=== PATIENT | male | born 1960 | race Caucasian/White ===

== ENCOUNTER 2020-09-27 03:25 | Inpatient (IN) | payer BC ==
[~2020-09-27] VITALS: Ht 190.5 cm; Wt 181.6 kg
--- NOTE | 2020-09-27 03:34 | PHYS DOC ---
Past History Past Medical History: Arthritis, Diabetes, High Cholesterol, Hypertension Past Medical History Sleep Apnea- on CPAP, venous stasis, Morbid obesity Past Surgical History Varicose venous treatment Smoking: Non-smoker General Adult HPI: HPI: ".. I woke up with really bad reflux ... about 1230.. I took some anti acids..and went back to bed.. but about 230... I woke up in a soaking sweat.,., and this bad chest pain.. it has never really gone away...."".. It feels like someone is giving me a really hard bear hug..." Patient is a 60 year old male who presents with above hx and complaints of chest pain. Chest pain is central and radiated to mid back between his shoulders. Pain does not seem to have a pleuritic component. Nothing seems to relieve the pain. This is not his typical reflux pain. Patient does have a history of elevated glucose, hypertension, and morbid obesity. Patient does have chronic leg swelling however this is improved with laser surgery of his varicose veins. Patient also on reports that his venous stasis has improved significantly since his treatment of his varicose veins. Patient denies any travel. Patient denies any significant ill contacts. No history of prior cardiac events. Patient normally follows [facility] for maintenance health care and his hypertensive meds. Patient does not smoke or use drugs. Review of Systems: Review of Systems: Constitutional: Denies fever or chills Eyes: Denies change in visual acuity HENT: Denies nasal congestion or sore throat Respiratory: Denies cough or shortness of breath Cardiovascular: Complains of central chest pain, history of chronic edema GI: Denies abdominal pain, nausea, vomiting, bloody stools or diarrhea : Denies dysuria Musculoskeletal: Denies back pain or joint pain Integument: Denies rash Neurologic: Denies headache, focal weakness or sensory changes Endocrine: Denies polyuria or polydipsia Lymphatic: Denies swollen glands Psychiatric: Denies depression or anxiety Family History: Family History: Father of GA at age 46, Hx Heart transplant, Mother DM, HTN , Pacer- alive , Brother /Sister 's HTN and DM Current Medications: Current Meds: See nursing for home meds Allergies: Allergies: NKIDA Physical Exam: PE: Constitutional: in acute distress, non-toxic appearance. [] HENT: Normocephalic, atraumatic, bilateral external ears normal, oropharynx moist, no oral exudates, nose normal. [] Eyes: PERRLA, EOMI, conjunctiva normal, no discharge. [] Neck: Normal range of motion, no tenderness, supple, no stridor. More than 17 circumference. Cardiovascular: Irregular heart rate regular rhythm, no murmur. ( Monitor shows a sinus rhythm with frequent PVCs) Lungs & Thorax: Bilateral breath sounds equal at apex with basilar crackles bilaterally on auscultation [] Abdomen: Bowel sounds normal, soft, no tenderness, no masses, no pulsatile masses. Morbidly obese Skin: Warm, mildly diaphoretic, no erythema, no rash. Venous stasis changes Back: No tenderness, no CVA tenderness. [] Extremities: No tenderness, no cyanosis, no clubbing, ROM intact, bilateral leg edema. [] No cording appreciated, Neurologic: Alert and oriented X 3, normal motor function, normal sensory function, no focal deficits noted. [] Psychologic: Affect anxious, judgement normal, mood normal. [] EKG: EKG: My interpretation EKG shows a sinus rhythm at 82 bpm. There is left axis changes. There is fascicular block. Contour abnormality suggestive of a strain pattern. Does have a PVCs. No findings of acute STEMI with contralateral changes. [] Radiology/Procedures: Radiology/Procedures: My interpretation of chest x-ray shows cardiomegaly. Some basilar atelectasis. No findings of acute consolidation. [] Heart Score: HEART Score for Chest Pain: HEART Score for Chest Pain Response (Comments) Value History Moderately Suspicious 1 ECG Nonspecific Repolarizatio 1 Age >45 - < 65 1 Risk Factors 1 or 2 Risk Factors 1 Troponin < Normal Limit 0 Total 4 Risk Factors: Risk Factors: DM, Current or recent (<one month) smoker, HTN, HLP, family history of CAD, obesity. Risk Scores: Score 0 - 3: 2.5% MACE over next 6 weeks - Discharge Home Score 4 - 6: 20.3% MACE over next 6 weeks - Admit for Clinical Observation Score 7 - 10: 72.7% MACE over next 6 weeks - Early Invasive Strategies Course & Med Decision Making: Course & Med Decision Making Pertinent Labs and Imaging studies reviewed. (See chart for details) Discussed presentation, testing and treatment plan with . Admit with cardiology consult. Plan if no beds, transfer to [facility]. Advised can not admit to [facility], no staff . 0500 Impression: 1. Chest pain 2. Hypertension 3. Diabetes glucose 178 4.. Sleep apnea-on BiPAP/CPAP 5. Morbid obesity [] Dragon Disclaimer: Dragon Disclaimer: This electronic medical record was generated, in whole or in part, using a voice recognition dictation system. Departure Departure: Referrals: AILYN CANNON (PCP) Luis Disclaimer This chart was dictated in whole or in part using Voice Recognition software in a busy, high-work load, and often noisy Emergency Department environment. It may contain unintended and wholly unrecognized errors or omissions. Dragon Disclaimer This chart was dictated in whole or in part using Voice Recognition software in a busy, high-work load, and often noisy Emergency Department environment. It may contain unintended and wholly unrecognized errors or omissions. Dragon Disclaimer This chart was dictated in whole or in part using Voice Recognition software in a busy, high-work load, and often noisy Emergency Department environment. It may contain unintended and wholly unrecognized errors or omissions. SUPRIYA BOURGEOIS MD Sep 27, 2020 03:34
--- NOTE | 2020-09-27 03:46 | EKG ---
[facility] ED [facility] [address] [place] [id number] Test Date: 2020-09-27 Test Time: 03:35:28 Pat Name: COLLIN BAUTISTA Department: Room: Gender: M [employer] Instructor: DARRYL : 1960 Requested By: SUPRIYA BOURGEOIS Order Number: [id number] Reading MD: Measurements Intervals [place] Rate: 82 P: 48 IL: 200 QRS: -39 QRSD: 90 T: 28 QT: 366 QTc: 431 Interpretive Statements SINUS RHYTHM ABNORMAL LEFT AXIS DEVIATION LEFT ANTERIOR FASCICULAR BLOCK QRS(T) CONTOUR ABNORMALITY CONSIDER ANTEROSEPTAL MYOCARDIAL DAMAGE ABNORMAL ECG RI6.02 No previous ECG available for comparison
[2020-09-27 03:50] LABS: BASO # 0.2 x10^3/uL (0.0-0.2); BASO % 3 % (0-3); EOS # 0.3 x10^3/uL (0.0-0.7); EOS % 4 % (0-3); HEMATOCRIT 48.2 % (39.0-53.0); HEMOGLOBIN 16.1 g/dL (13.0-17.5); LYMPH # 1.9 x10^3/uL (1.0-4.8); LYMPH % 23 % (24-48); MEAN CORPUSCULAR HEMOGLOBIN 28 pg (25-35); MEAN CORPUSCULAR HGB CONC 33 g/dL (31-37); MEAN CORPUSCULAR VOLUME 84 fL (79-100); MONO # 0.8 x10^3/uL (0.0-1.1); MONO % 10 % (0-9); NEUT # 4.9 x10^3uL (1.8-7.7); NEUT % 60 % (31-73); PLATELET COUNT 239 x10^3/uL (140-400); RED BLOOD COUNT 5.71 x10^6/uL (4.30-5.70); RED CELL DISTRIBUTION WIDTH 15.6 % (11.5-14.5); WHITE BLOOD COUNT 8.2 x10^3/uL (4.0-11.0)
[2020-09-27] MEDS ORDERED: IV RINGERS SOLUTION,LACTATED 1,000 ML IV SCH (04:00)
[2020-09-27] MEDS ORDERED: ASPIRIN CHEWABLE 81 MG TABLET. PO ONE (04:00)
--- NOTE | 2020-09-27 04:04 | RAD ---
INDICATION: Reason: Chest pain / Spl. Instructions: / History: COMPARISON: None. FINDINGS: Single view of chest obtained. No definite focal airspace consolidation. Cardiac silhouette is prominent in size. IMPRESSION: * No focal airspace consolidation or edema. Electronically signed by: Celso Lo MD (09/27/2020 4:01 AM) [id number]
[2020-09-27 04:09] LABS: CALCIUM 9.3 mg/dL (8.5-10.1); CREATININE 1.2 mg/dL (0.7-1.3); GFR 61.8
[2020-09-27 04:14] LABS: ALBUMIN 3.5 g/dL (3.4-5.0); DIRECT BILIRUBIN 0.1 mg/dL (0.0-0.2); MAGNESIUM 1.8 mg/dL (1.8-2.4); TOTAL BILIRUBIN 0.2 mg/dL (0.2-1.0); TOTAL PROTEIN 7.7 g/dL (6.4-8.2)
[2020-09-27] MEDS ORDERED: NITROGLYCERIN OINT 1 GM PACKET. TP ONE (04:15)
[2020-09-27] MEDS ORDERED: ENOXAPARIN ** NOTE DOSE ** SYRINGE SQ ONE (04:15)
[2020-09-27] MEDS ORDERED: MORPHINE SULFATE 2 MG/ML DISP.SYRIN. IVP PRN (04:30)
[2020-09-27] MEDS ORDERED: ONDANSETRON PF 4 MG/2 ML VIAL. IVP PRN (04:30)
[2020-09-27] MEDS ORDERED: ACETAMINOPHEN 325 MG TABLET PO PRN (04:30)
[2020-09-27] MEDS ORDERED: ANTI-COAG MONITOR BY PHARMACY. MC PRN (04:45)
[2020-09-27 06:06] VITALS: BP 156/78
[2020-09-27 06:09] LABS: BARBITURATES NEG (NEG); BENZODIAZEPINES NEG (NEG); CANNABINOIDS NEG (NEG); COCAINE NEG (NEG); METHADONE NEG (NEG); OPIATES NEG (NEG); PHENCYCLIDINE NEG (NEG)
[2020-09-27 06:13] LABS: AMPHETAMINE/METHAMPHETAMINE NEG (NEG)
[2020-09-27 06:18] LABS: BILIRUBIN,URINE NEG (NEG); CLARITY,URINE CLEAR; COLOR,URINE YELLOW; GLUCOSE,URINE NEG (NEG)
[2020-09-27 06:19] LABS: BACTERIA,URINE 0 /HPF (0-FEW); HYALINE CASTS, URINE OCC /HPF; NITRITE,URINE NEG (NEG); RBC,URINE OCC /HPF (0-2); SQUAMOUS EPITHELIAL CELL,UR FEW /LPF; UROBILINOGEN,URINE 0.2 mg/dL (0.2 mg/dL); WBC,URINE OCC /HPF (0-4)
--- NOTE | 2020-09-27 06:40 | NUR ---
The patient, COLLIN BAUTISTA, 60 y/o, M admitted by GISELA OSMAN MD, was given written information regarding hospital policies, unit procedures and contact persons. Valuables were checked and vital signs noted. PT awoke with chest pain at 0200 with radiation to LT arm and shoulder. PT presented to ER with continued chest pain. PT admitted with elevated troponin. At time of admission, PT is pain free. Reviewed with PT his PMH, PSH, SH, FH and medications.
--- NOTE | 2020-09-27 07:34 | NUR ---
lab called for elevated troponin 1.007. Dr. Roger is on the floor and has been notified.
[2020-09-27] MEDS ORDERED: ASPIRIN CHEWABLE 81 MG TABLET. PO SCH (08:00)
--- NOTE | 2020-09-27 08:32 | PDOC2 ---
CARDIAC CONSULT DATE OF CONSULT DOS: DATE: 09/27/20 TIME: 08:30 REASON FOR CONSULT Reason for Consult Chest pain REFERRING PHYSICIAN Referring Physician Dr. Lyons SOURCE Source: Chart review, Patient HPI History of Present Illness This is a 60 yo male who presented secondary to chest pain. Patient reports he woke up about midnight with acid reflux type pain in his central chest. Took tums and went back to bed. Woke back up about 2:00am with pressure and tightness around his chest. Sunset light someone was squeezing his chest. Pain radiated to his upper back and down his left arm. Was diaphoretic and nauseated. No dizziness or shortness of breath. Used heating pain, which did not improve his pain. Decided to come to the ED for further evaluation and treatment. Initial trop 0.055. Repeat at 1.0. EKG without significant acute changes. Pain resolved with nitro and ASA in ED and has not returned. PAST MEDICAL HISTORY Cardiovascular: HTN, hyperipidemia Endocrine: Diabetes PAST SURGICAL HISTORY Past Surgical History: Tonsillectomy, Other (vasectomy ) FAMILY HISTORY Family History: Coronary Artery Disease, Heart Disease, Hypertension SOCIAL HISTORY Smoke: No ALCOHOL: none Drugs: None Lives: Alone CURRENT MEDICATIONS Current Medications Current Medications Aspirin (Aspirin Chewable) 324 mg 1X ONCE PO ; Start 09/27/20 at 04:00; Stop 09/27/20 at 04:01; Status DC Lactated Ringer's 1,000 ml @ 100 mls/hr Q10H IV Last administered on 09/27/20at 04:12; Start 09/27/20 at 04:00; Stop 09/27/20 at 13:59 Enoxaparin Sodium (Lovenox 100mg Syringe) 180 mg 1X ONCE SQ Last administered on 09/27/20at 04:10; Start 09/27/20 at 04:15; Stop 09/27/20 at 04:16; Status DC Nitroglycerin (Nitro-Bid Oint) 1 inch 1X ONCE TP Last administered on 09/27/20at 04:11; Start 09/27/20 at 04:15; Stop 09/27/20 at 04:16; Status DC Ondansetron HCl (Zofran) 4 mg PRN Q4HRS PRN IVP NAUSEA/VOMITING; Start 09/27/20 at 04:30; Stop 09/28/20 at 04:29 Morphine Sulfate (Morphine 2mg Syringe) 2 mg PRN Q4HRS PRN IVP PAIN; Start 09/27/20 at 04:30; Stop 09/28/20 at 04:29 Acetaminophen (Tylenol) 650 mg PRN Q4HRS PRN PO FEVER > 100.3'F; Start 09/27/20 at 04:30; Stop 09/28/20 at 04:29 Aspirin (Aspirin Chewable) 81 mg DAILYWBKFT PO Last administered on 09/27/20at 07:44; Start 09/27/20 at 08:00 Enoxaparin Sodium (Lovenox 100mg Syringe) 180 mg Q12HR SQ ; Start 09/27/20 at 21:00 Famotidine (Pepcid) 20 mg BID PO ; Start 09/27/20 at 09:00 Info (Anti-Coagulation Monitoring By Pharmacy) 1 each PRN DAILY PRN MC SEE COMMENTS; Start 09/27/20 at 04:45 ALLERGIES Allergies: Coded Allergies: No Known Drug Allergies (Unverified , 09/27/20) ROS Review of Systems 14 point ROS conducted with pertinent positives noted above in hPI PHYSICAL EXAM General: Alert, Oriented X3, Cooperative, No acute distress HEENT: Atraumatic, Mucous membr. moist/pink Lungs: Clear to auscultation Heart: Regular rate, No murmurs Abdomen: Soft, No tenderness, Other (obese ) Skin: No breakdown Neuro: Normal speech, Sensation intact Psych/Mental Status: Mental status NL, Mood NL MUSCULOSKELETAL: No deformity VITALS Vital Signs Vital Signs Date Time Temp Pulse Resp B/P (MAP) Pulse Ox O2 Delivery O2 Flow Rate FiO2 09/27/20 06:27 Room Air 09/27/20 06:06 98.3 81 20 156/78 (104) 97 LABS LABS Laboratory Tests Test 09/27/20 03:34 09/27/20 05:45 09/27/20 07:00 White Blood Count 8.2 x10^3/uL (4.0-11.0) Red Blood Count 5.71 x10^6/uL (4.30-5.70) Hemoglobin 16.1 g/dL (13.0-17.5) Hematocrit 48.2 % (39.0-53.0) Mean Corpuscular Volume 84 fL (79-100) Mean Corpuscular Hemoglobin 28 pg (25-35) Mean Corpuscular Hemoglobin Concent 33 g/dL (31-37) Red Cell Distribution Width 15.6 % (11.5-14.5) Platelet Count 239 x10^3/uL (140-400) Neutrophils (%) (Auto) 60 % (31-73) Lymphocytes (%) (Auto) 23 % (24-48) Monocytes (%) (Auto) 10 % (0-9) Eosinophils (%) (Auto) 4 % (0-3) Basophils (%) (Auto) 3 % (0-3) Neutrophils # (Auto) 4.9 x10^3uL (1.8-7.7) Lymphocytes # (Auto) 1.9 x10^3/uL (1.0-4.8) Monocytes # (Auto) 0.8 x10^3/uL (0.0-1.1) Eosinophils # (Auto) 0.3 x10^3/uL (0.0-0.7) Basophils # (Auto) 0.2 x10^3/uL (0.0-0.2) Prothrombin Time 9.7 SEC (9.4-11.4) Prothromb Time International Ratio 0.9 (0.9-1.1) Activated Partial Thromboplast Time 28 SEC (23-33) D-Dimer (Rima) 0.30 mg/L (0.00-0.50) Sodium Level 140 mmol/L (136-145) Potassium Level 4.0 mmol/L (3.5-5.1) Chloride Level 106 mmol/L (98-107) Carbon Dioxide Level 28 mmol/L (21-32) Anion Gap 6 (6-14) Blood Urea Nitrogen 21 mg/dL (8-26) Creatinine 1.2 mg/dL (0.7-1.3) Estimated GFR (Cockcroft-Gault) 61.8 Glucose Level 178 mg/dL (70-99) Calcium Level 9.3 mg/dL (8.5-10.1) Magnesium Level 1.8 mg/dL (1.8-2.4) Total Bilirubin 0.2 mg/dL (0.2-1.0) Direct Bilirubin 0.1 mg/dL (0.0-0.2) Aspartate Amino Transf (AST/SGOT) 20 U/L (15-37) Alanine Aminotransferase (ALT/SGPT) 47 U/L (16-63) Alkaline Phosphatase 89 U/L (46-116) Creatine Kinase 97 U/L (39-308) Troponin I Quantitative 0.055 ng/mL (0-0.055) 1.007 ng/mL (0-0.055) MZ-Flj-U-Type Natriuretic Peptide 92 pg/mL (0-124) Total Protein 7.7 g/dL (6.4-8.2) Albumin 3.5 g/dL (3.4-5.0) Lipase 171 U/L (73-393) Urine Collection Type Unknown Urine Color Yellow Urine Clarity Clear Urine pH 5.5 Urine Specific [place] 1.025 Urine Protein Neg (NEG-TRACE) Urine Glucose (UA) Neg mg/dL (NEG) Urine Ketones (Stick) Neg mg/dL (NEG) Urine Blood Neg (NEG) Urine Nitrite Neg (NEG) Urine Bilirubin Neg (NEG) Urine Urobilinogen Dipstick 0.2 mg/dL (0.2 mg/dL) Urine Leukocyte Esterase Neg (NEG) Urine RBC Occ /HPF (0-2) Urine WBC Occ /HPF (0-4) Urine Squamous Epithelial Cells Few /LPF Urine Bacteria 0 /HPF (0-FEW) Urine Hyaline Casts Occ /HPF Urine Mucus Slight /LPF Urine Opiates Screen Neg (NEG) Urine Methadone Screen Neg (NEG) Urine Barbiturates Neg (NEG) Urine Phencyclidine Screen Neg (NEG) Urine Amphetamine/Methamphetamine Neg (NEG) Urine Benzodiazepines Screen Neg (NEG) Urine Cocaine Screen Neg (NEG) Urine Cannabinoids Screen Neg (NEG) Urine Ethyl Alcohol Neg (NEG) ECHOCARDIOGRAM Echocardiogram <Conclusion> Left ventricle systolic function is mildly decreased. The Ejection Fraction is 45-50%. There is mild global hypokinesis of the left ventricle. DATE: 03/29/19 1445 HEART CATH Heart Cath FINDINGS 1. Hemodynamics: Left ventricular end-diastolic pressure of 8 mmHg. No pullback gradient across the aortic valve. 2. Left ventriculography: Mild left ventricle systolic dysfunction with ejection fraction estimated at 45-50%. No significant mitral regurgitation seen. 3. Coronary angiography: a. The left main coronary artery arose from the left sinus of Valsalva, gave rise to the left anterior descending and left circumflex arteries and did not show any significant stenosis. b. The left anterior descending artery showed 40% stenosis in the midsegment. c. The left circumflex artery did not show any significant stenosis. d. The right coronary artery arose from the right sinus of Valsalva that did not show any significant stenosis. Conclusion 1. Nonobstructive coronary artery disease 2. Mild left ventricle systolic dysfunction with ejection fraction estimated at 45-50%. DATE: 07/05/19 0915 ASSESSMENT/PLAN Assessment/Plan 1. Chest pain with typical feature; 2. NSTEMI; trop highest 1.0. Received ASA and treatment dosing Lovenox early this am 3. CAD; non-obstructive per cath 06/2019 as noted above. Echo 2018 with mildly reduced LV systolic function with an EF of 45-50% 4. Hypertension; mildly elevated 5. Hyperlipidemia 6. Diabetes, II 7. Morbid obesity Recommendations Given risk factors and presentation in the setting of NSTEMI, recommend cardiac catheterization with possible PCI. R/b/a discussed with patient and he is agreeable to proceed. Keep NPO [facility] later today. LEILANI DOBSON APRN Sep 27, 2020 08:32
[2020-09-27] MEDS ORDERED: FAMOTIDINE 20 MG TABLET PO SCH (09:00)
--- NOTE | 2020-09-27 09:10 | DS ---
DATE OF DISCHARGE: 09/27/2020 ATTENDING PHYSICIAN: Dr. Barragan. FINAL DISCHARGE DIAGNOSES: 1. Non-ST elevation myocardial infarction. 2. Morbid obesity. 3. Ischemic cardiomyopathy, ejection fraction estimated at 45%. 4. Hypertension. 5. Hyperlipidemia. 6. Chest pain. HISTORY OF PRESENT ILLNESS: This 60-year-old gentleman was admitted with chest pressure and pain at rest. His second set of cardiac enzymes did rise at 1.007. He had a negative nonobstructive catheterization over a year ago. Cardiology consult saw him and they want to study him again. PHYSICAL EXAMINATION: Please see the dictated note. PERTINENT LABORATORY AND X-RAY STUDIES: Please refer to the database. The second cardiac enzymes was abnormal at 1.007. COURSE IN THE HOSPITAL: The patient was admitted. Pain has subsided. He was given Lovenox. Cardiology consultation was entertained later that day. Arrangements were then made for transfer by ambulance to [facility] for anticipated cardiac catheterization later today. Therefore, he is discharged by ambulance with continuation of his Lovenox, aspirin and nitroglycerin p.r.n. The patient was then discharged from our hospital in stable condition to go to [facility] for further cardiac evaluation. WADE BARRAGAN MD DR: RADHA/evelyn JOB#: [id number] / [id number] [facility] Chart, The [facility]ILY[facility] CAN[facility]
--- NOTE | 2020-09-27 10:01 | HP ---
ADMIT DATE: 09/27/2020 ADMISSION HISTORY AND PHYSICAL ATTENDING PHYSICIAN: Dr. Barragan CHIEF COMPLAINT: Chest pressure. 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 He is in excess of 400 pounds. He had a cardiac catheterization just a year ago with Dr. Fay. He had new onset of chest pain at rest, resulting in chest pressure, bite-like symptom. He took a few nitroglycerins and some Tums, pain got better. He said this felt somewhat different. He reported to the ED. Initial cardiac enzyme was negative, but second cardiac enzyme peaked at 1.007. His electrolytes are within normal range. Hemoglobin is 16.1 gram. Chest x-ray was clear. Because of symptoms and his elevated enzymes, this may be due to stress demand with his risk factor, he is admitted for further evaluation and followup Cardiology evaluation. He had an echocardiogram done about a year and a half ago. I am tracking that report. He is currently pain-free. PAST MEDICAL HISTORY: Significant for hypertension, borderline diabetes, and gastroesophageal reflux disease along with morbid obesity. His weight is 181 kilograms, which is right at about 400 pounds. CURRENT MEDICATIONS: He was given Lovenox, Pepcid, lactated Ringer's and morphine. ALLERGIES: He has no known drug allergies. SOCIAL HISTORY: He is a nonsmoker, nondrinker. FAMILY HISTORY: Significant for his father suffered a massive myocardial infarction at age 52 and of complication of that. Mother is alive at age 84. She has a permanent pacemaker. He is single. He has no children. REVIEW OF SYSTEMS: Significant for the localized chest pain. He has indigestion. He has morbid obesity. He denied any recent COVID exposure. He had some workup earlier with his varicose veins that has not been an issue. All other systems were reviewed and determined to be negative. PHYSICAL EXAMINATION: GENERAL: When I saw him, this is a pleasant, middle-aged gentleman. INITIAL VITAL SIGNS: Showed a blood pressure of 156/78 mmHg. His pulse is 81 and regular, temperature 98.3 degrees Fahrenheit, and his oxygen saturation are 97% on room air. HEENT: The head is without trauma. The pupils are reactive. The sclerae are nonicteric. The oropharynx is clear. NECK: Supple. There are no bruits or thyromegaly. No stridor. LUNGS: Otherwise, clear to auscultation. CARDIOVASCULAR: Showed distant heart tones. No obvious gallops. Peripheral pulses are palpable and full. ABDOMEN: Obese, protuberant. I cannot assess any liver or spleen enlargement due to his size. Bowel sounds are normoactive. EXTREMITIES: Showed trace edema. He has some stasis dermatitis and hemosiderin deposits. NEUROLOGIC: Focally intact. Speech is fluent. Armament Installer were intact. SKIN: Otherwise warm and dry. PERTINENT LABORATORY STUDIES: Initial hemoglobin 16.1 g/dL with white count of 8200. His first set of enzymes were negative, but the second set of troponin was elevated at 1.007. Nonfasting blood sugar 178, creatinine is 1.2 mg/dL. Chest x-ray was clear. ASSESSMENT: 1. A 60-year-old gentleman with a non-STEMI, whether this is due to ischemia or stress demand remains to be seen. 2. Morbid obesity. 3. Negative cardiac catheterization over a year ago. 4. Diabetes. 5. Hypertension. 6. Hyperlipidemia. PLAN: 1. Admit to the inpatient unit. 2. Serial cardiac enzyme. 3. Continue home meds. 4. Lovenox has been added. 5. Formal Cardiology evaluation to assess further evaluation. WADE BARRAGAN MD DR: RADHA/evelyn JOB#: [id number] / [id number] ecc ,
--- NOTE | 2020-09-27 10:20 | NUR ---
PATIENT IS TRANSFERRING TO [facility] FOR CARDIAC CATH. PATIENT SIGNED THE CONSENT. REPORT CALLED AND GIVEN TO ZAINA TABARES. EMS CALLED , AWAITING FOR ARRIVAL.
[2020-09-27 10:27] VITALS: BP 126/68
--- NOTE | 2020-09-27 11:16 | NUR ---
PATIENT LEFT ROOM 117 VIA EMS TO BE TRANSFERRED TO [facility] FOR HIGHER LEVEL OF CARE.
[2020-09-27 14:33] LABS: THYROID STIM HORMONE (TSH) 1.283 uIU/mL (0.358-3.740)
[2020-09-27] MEDS ORDERED: ENOXAPARIN ** NOTE DOSE ** SYRINGE SQ SCH (21:00)
== END 2020-09-27 11:15 | disposition short-term general hospital (02) | DRG 281 ==
LOC: ER 03:25 → 1 SOUTH 05:40 → OBSVTOIN 08:07
PROVIDERS: ADMIT Internal Medicine; ATTEND Internal Medicine
DX: I21.4 Non-ST elevation (NSTEMI) myocardial infarction (principal); Z68.43 Body mass index [BMI] 50.0-59.9, adult; M19.90 Unspecified osteoarthritis, unspecified site; E11.9 Type 2 diabetes mellitus without complications; E78.00 Pure hypercholesterolemia, unspecified; I10 Essential (primary) hypertension; G47.30 Sleep apnea, unspecified; E66.01 Morbid (severe) obesity due to excess calories; K21.9 Gastro-esophageal reflux disease without esophagitis; E78.5 Hyperlipidemia, unspecified; I25.10 Atherosclerotic heart disease of native coronary artery without angina pectoris; I25.5 Ischemic cardiomyopathy; I87.8 Other specified disorders of veins; Z83.3 Family history of diabetes mellitus; Z82.49 Family history of ischemic heart disease and other diseases of the circulatory system; Z98.52 Vasectomy status
CPT/HCPCS: 36415; 71045; 80048; 80061; 80076; 80307; 81001; 82550; 83690; 83735; 83880; 84443; 84484; 85025; 85379; 85610; 85730; 93005; 96360; 96372; G0378; G0379; J1650; J7120; 99285-25